=== PATIENT | female | born 1990 | race Caucasian/White ===

== ENCOUNTER 2024-01-20 23:20 | Emergency (ER) | payer OTHER ==
[~2024-01-20] VITALS: Ht 172.7 cm; Wt 124.7 kg
[2024-01-20] MEDS ORDERED: ESCI20TA PO (23:59)
[2024-01-20] MEDS ORDERED: LISI10TA29 PO (23:59)
[2024-01-20] MEDS ORDERED: CARI3CAP PO (23:59)
[2024-01-21] MEDS ORDERED: LORAZEPAM 1 MG TABLET ONE ×2 (00:18→02:04)
[2024-01-21] MEDS ORDERED: ONDANSETRON HCL 4 MG TABLET ONE (00:18)
[2024-01-21] MEDS ORDERED: HYDROMORPHONE 1 MG/1 ML DISP.SYRIN ONE ×2 (00:18→02:04)
[2024-01-21] MEDS: LORAZEPAM 0.5 MG TABLET PO ONE ×2 (00:25→02:09)
[2024-01-21] MEDS: ONDANSETRON ODT 4 MG TAB.RAPDIS SL ONE (00:25)
[2024-01-21] MEDS: HYDROMORPHONE 1 MG/1 ML DISP.SYRIN IM ONE ×2 (00:26→02:10)
[2024-01-21] MEDS ORDERED: HYDR-3980 PO (02:46)
[2024-01-21] MEDS ORDERED: CYCL10TA9 PO (02:46)
[2024-01-21] MEDS ORDERED: ONDA4TAB11 PO (02:46)
[2024-01-21 03:00] VITALS: BP 100/68; TEMP 97.8; O2SAT 97
== END 2024-01-21 03:02 | disposition home or self-care (01) ==
LOC: ER 23:26
DX: M54.50 Low back pain, unspecified (principal); F32.A Depression, unspecified; Z90.49 Acquired absence of other specified parts of digestive tract; Z79.899 Other long term (current) drug therapy; W01.0XXA Fall on same level from slipping, tripping and stumbling without subsequent striking against object, initial encounter; Y93.89 Activity, other specified; Y92.89 Other specified places as the place of occurrence of the external cause; Y99.8 Other external cause status
CPT/HCPCS: 99284; 72110; 96372 ×2; J1171 ×2; A4606; A4663; Q0162

== ENCOUNTER 2024-03-09 23:49 | Emergency (ER) | payer OTHER ==
[~2024-03-09] VITALS: Ht 172.7 cm; Wt 124.7 kg
[~2024-03-09 23:49] MED LIST: CARI3CAP PO; CYCL10TA9 PO; ESCI20TA PO; HYDR-3980 PO; LISI10TA29 PO; ONDA4TAB11 PO
[2024-03-10] MEDS: ALBUTEROL SULFATE 2.5 MG/3 ML NEBU NEB ONE (00:35)
[2024-03-10] MEDS: IPRATROPIUM BROMIDE 0.5 MG/2.5 ML NEBU NEB ONE (00:35)
[2024-03-10] MEDS ORDERED: IPRATROPIUM BROMIDE 0.5 MG/2.5 ML NEBU ONE (00:39)
[2024-03-10] MEDS ORDERED: ALBUTEROL SULFATE 2.5 MG/3 ML NEBU ONE (00:39)
[2024-03-10 00:45] VITALS: O2SAT 96
[2024-03-10 00:47] LABS: BASOPHILS # (AUTO) 0.1 K/UL (0.0-0.2); BASOPHILS % (AUTO) 1.3 % (0.0-2.0); EOSINOPHILS # (AUTO) 0.9 K/uL (0.0-0.7); HEMATOCRIT 39.7 % (31.2-41.9); LYMPHOCYTES # (AUTO) 2.8 K/uL (0.8-4.8); LYMPHOCYTES % (AUTO) 29.5 % (20.5-51.5); MEAN CORPUSCULAR HGB CONC 33 g/dL (32.3-35.6); MEAN CORPUSCULAR VOLUME 82.1 fL (75.5-95.3); MONOCYTES # (AUTO) 0.7 K/uL (0.1-1.30); MONOCYTES % (AUTO) 6.8 % (0.0-11.0); NEUTROPHILS # (AUTO) 5.1 K/uL (1.8-8.9); NEUTROPHILS % (AUTO) 53.4 % (38.5-71.5); PLATELET COUNT (AUTO) 394 K/uL (179-408); RED BLOOD CELL COUNT(AUTO) 4.83 MIL/uL (3.63-4.92); RED CELL DISTRIBUTION WIDTH 15.7 % (12.3-17.7); WHITE BLOOD COUNT (AUTO) 9.6 K/uL (3.8-11.8)
[2024-03-10 00:49] LABS: DIFFERENTIAL COMMENT 1
[2024-03-10 00:54] VITALS: O2SAT 97
[2024-03-10 00:56] LABS: CALCIUM 9.1 mg/dL (8.5-10.1); POTASSIUM 4.2 mmol/L (3.5-5.1)
[2024-03-10] MEDS: predniSONE 10 MG TABLET PO ONE (00:57)
[2024-03-10] MEDS ORDERED: predniSONE 20 MG TABLET ONE (00:57)
[2024-03-10 01:00] VITALS: O2SAT 98
[2024-03-10 01:08] LABS: ALBUMIN 3.5 g/dL (3.4-5.0); BILIRUBIN,DIRECT 0.1 mg/dL (0.0-0.2); BILIRUBIN,TOTAL 0.3 mg/dL (0.2-1.0); TOTAL PROTEIN, SERUM 7.9 g/dL (6.4-8.2)
[2024-03-10] MEDS ORDERED: PRED20TA PO (01:40)
[2024-03-10] MEDS ORDERED: AZIT250T PO (01:40)
[2024-03-10] MEDS ORDERED: ALBU8.5H8 IH (01:40)
[2024-03-10] MEDS: IBUPROFEN 600 MG TABLET PO ONE (01:48)
[2024-03-10] MEDS: AZITHROMYCIN 250 MG TABLET PO ONE (01:48)
[2024-03-10] MEDS ORDERED: IBUPROFEN 600 MG TABLET ONE (01:48)
[2024-03-10] MEDS ORDERED: AZITHROMYCIN 250 MG TABLET ONE (01:48)
[2024-03-10] MEDS ORDERED: HYDROCODONE/APAP 5-325MG TABLET ONE (01:55)
[2024-03-10] MEDS: HYDROCODONE/APAP 5-325MG TABLET PO ONE (01:57)
[2024-03-10 02:45] VITALS: BP 135/78; TEMP 97.9; O2SAT 96
== END 2024-03-10 02:46 | disposition home or self-care (01) ==
LOC: ER 23:59
DX: J18.9 Pneumonia, unspecified organism (principal); F32.A Depression, unspecified; J98.01 Acute bronchospasm; R10.2 Pelvic and perineal pain; Z79.52 Long term (current) use of systemic steroids; Z20.822 Contact with and (suspected) exposure to COVID-19; Z79.899 Other long term (current) drug therapy; Z90.49 Acquired absence of other specified parts of digestive tract
CPT/HCPCS: 36415; 71045; 85025; 94760; A4663; J3590; J7512; Q0144

== ENCOUNTER 2024-03-12 22:59 | Emergency (ER) | payer SELFPAY ==
[~2024-03-12] VITALS: Ht 172.7 cm; Wt 124.7 kg
[~2024-03-12 22:59] MED LIST changes: +ALBU8.5H8 IH; +AZIT250T PO; +PRED20TA PO
[2024-03-12 23:31] LABS: BASOPHILS # (AUTO) 0.1 K/UL (0.0-0.2); BASOPHILS % (AUTO) 0.6 % (0.0-2.0); EOSINOPHILS # (AUTO) 0.1 K/uL (0.0-0.7); EOSINOPHILS % (AUTO) 0.5 % (0.0-7.0); HEMATOCRIT 36.7 % (31.2-41.9); HEMOGLOBIN 12.3 g/dL (10.9-14.3); LYMPHOCYTES # (AUTO) 1.7 K/uL (0.8-4.8); LYMPHOCYTES % (AUTO) 15.2 % (20.5-51.5); MEAN CORPUSCULAR HEMOGLOBIN 27.5 uug (24.7-32.8); MEAN CORPUSCULAR HGB CONC 34 g/dL (32.3-35.6); MONOCYTES # (AUTO) 0.6 K/uL (0.1-1.30); MONOCYTES % (AUTO) 5.4 % (0.0-11.0); NEUTROPHILS # (AUTO) 8.9 K/uL (1.8-8.9); NEUTROPHILS % (AUTO) 78.3 % (38.5-71.5); PLATELET COUNT (AUTO) 405 K/uL (179-408); RED BLOOD CELL COUNT(AUTO) 4.47 MIL/uL (3.63-4.92); WHITE BLOOD COUNT (AUTO) 11.4 K/uL (3.8-11.8)
[2024-03-12 23:35] LABS: DIFFERENTIAL COMMENT 1
[2024-03-12 23:41] LABS: CALCIUM 8.5 mg/dL (8.5-10.1); CARBON DIOXIDE 30 mmol/L (21-32); CHLORIDE 103 mmol/L (98-107); CREATININE 1.1 mg/dL (0.6-1.3); GLUCOSE 108 mg/dL (74-106); SODIUM SERUM 141 mmol/L (136-145); UREA NITROGEN, BLOOD 19 mg/dL (7-18)
[2024-03-12] MEDS ORDERED: ONDANSETRON ODT 4 MG TAB.RAPDIS ONE (23:44)
[2024-03-12] MEDS ORDERED: HYDROCODONE/APAP 5-325MG TABLET ONE (23:44)
[2024-03-12] MEDS: ONDANSETRON ODT 4 MG TAB.RAPDIS SL ONE (23:45)
[2024-03-12] MEDS: HYDROCODONE/APAP 10-325 MG TABLET PO ONE (23:47)
[2024-03-12 23:55] LABS: ALANINE AMINOTRANSFERASE 29 U/L (14-59); ALBUMIN 3.4 g/dL (3.4-5.0); ALKALINE PHOSPHATASE 102 U/L (50-136); ASPARTATE AMINOTRANSFERASE 12 U/L (15-37); BILIRUBIN,DIRECT 0.1 mg/dL (0.0-0.2); BILIRUBIN,TOTAL 0.2 mg/dL (0.2-1.0); NT-PRO BNP 38 pg/mL (0-125); TOTAL PROTEIN, SERUM 7.3 g/dL (6.4-8.2)
[2024-03-13] MEDS ORDERED: HYDROCODONE/APAP 5-325MG TABLET ONE (02:06)
[2024-03-13] MEDS: HYDROCODONE/APAP 10-325 MG TABLET PO ONE (02:07)
[2024-03-13 02:19] VITALS: BP 121/69; TEMP 208.9; O2SAT 97
== END 2024-03-13 02:20 | disposition home or self-care (01) ==
LOC: ER 22:59
DX: R07.89 Other chest pain (principal); R09.1 Pleurisy; M79.7 Fibromyalgia; Z90.49 Acquired absence of other specified parts of digestive tract; Z79.52 Long term (current) use of systemic steroids; Z79.899 Other long term (current) drug therapy
CPT/HCPCS: 36415; 71045; 84484; 85025; A4606; A4663; Q0162

== ENCOUNTER 2024-04-08 00:25 | Emergency (ER) | payer OTHER ==
[~2024-04-08] VITALS: Ht 172.7 cm; Wt 124.7 kg
[2024-04-08] MEDS ORDERED: NAPR500T6 PO (00:44)
[2024-04-08] MEDS ORDERED: KETOROLAC TROMETHAMINE 30 MG INJ ONE (00:46)
[2024-04-08 01:14] LABS: *URINE HCG, QUAL NEGATIVE (NEGATIVE)
[2024-04-08] MEDS: KETOROLAC TROMETHAMINE 30 MG INJ IM ONE (01:20)
[2024-04-08] MEDS ORDERED: HYDROCODONE/APAP 5-325MG TABLET ONE (04:04)
[2024-04-08] MEDS: HYDROCODONE/APAP 5-325MG TABLET PO ONE (04:05)
[2024-04-08 04:18] VITALS: BP 145/88; TEMP 97.9; O2SAT 97
== END 2024-04-08 04:19 | disposition home or self-care (01) ==
LOC: ER 00:25
DX: S93.609A Unspecified sprain of unspecified foot, initial encounter (principal); Z79.52 Long term (current) use of systemic steroids; Z79.899 Other long term (current) drug therapy; Z90.49 Acquired absence of other specified parts of digestive tract; X58.XXXA Exposure to other specified factors, initial encounter; Y93.9 Activity, unspecified; Y92.9 Unspecified place or not applicable; Y99.9 Unspecified external cause status
CPT/HCPCS: 99284; 84703; 73630 ×2; 96372; J1885; A4606; A4663

== ENCOUNTER 2024-05-06 22:53 | Emergency (ER) | payer OTHER ==
[~2024-05-06] VITALS: Ht 172.7 cm; Wt 124.7 kg
[~2024-05-06 22:53] MED LIST changes: +NAPR500T6 PO
[2024-05-06 23:31] VITALS: O2SAT 97
[2024-05-06 23:38] LABS: BASOPHILS # (AUTO) 0.1 K/UL (0.0-0.2); BASOPHILS % (AUTO) 0.9 % (0.0-2.0); EOSINOPHILS # (AUTO) 0.4 K/uL (0.0-0.7); EOSINOPHILS % (AUTO) 4.7 % (0.0-7.0); HEMATOCRIT 36.6 % (31.2-41.9); HEMOGLOBIN 12.2 g/dL (10.9-14.3); LYMPHOCYTES # (AUTO) 2.7 K/uL (0.8-4.8); LYMPHOCYTES % (AUTO) 29.2 % (20.5-51.5); MEAN CORPUSCULAR HEMOGLOBIN 27.2 uug (24.7-32.8); MEAN CORPUSCULAR HGB CONC 33 g/dL (32.3-35.6); MEAN CORPUSCULAR VOLUME 81.5 fL (75.5-95.3); MONOCYTES # (AUTO) 0.6 K/uL (0.1-1.30); MONOCYTES % (AUTO) 6.4 % (0.0-11.0); NEUTROPHILS # (AUTO) 5.5 K/uL (1.8-8.9); NEUTROPHILS % (AUTO) 58.8 % (38.5-71.5); PLATELET COUNT (AUTO) 380 K/uL (179-408); RED CELL DISTRIBUTION WIDTH 15.9 % (12.3-17.7); WHITE BLOOD COUNT (AUTO) 9.3 K/uL (3.8-11.8)
[2024-05-06] MEDS ORDERED: ALBUTEROL SULFATE 2.5 MG/3 ML NEBU ONE (23:38)
[2024-05-06] MEDS ORDERED: IPRATROPIUM BROMIDE 0.5 MG/2.5 ML NEBU ONE (23:38)
[2024-05-06 23:40] LABS: DIFFERENTIAL COMMENT 1
[2024-05-06] MEDS: ALBUTEROL SULFATE 2.5 MG/3 ML NEBU NEB ONE (23:43)
[2024-05-06] MEDS: IPRATROPIUM BROMIDE 0.5 MG/2.5 ML NEBU NEB ONE (23:43)
[2024-05-06 23:44] LABS: *URINE HCG, QUAL NEGATIVE (NEGATIVE)
[2024-05-06 23:46] VITALS: O2SAT 99
[2024-05-06 23:54] LABS: CALCIUM 8.7 mg/dL (8.5-10.1); CARBON DIOXIDE 29 mmol/L (21-32); CHLORIDE 101 mmol/L (98-107); GLUCOSE 90 mg/dL (74-106); POTASSIUM 3.6 mmol/L (3.5-5.1); SODIUM SERUM 139 mmol/L (136-145); UREA NITROGEN, BLOOD 12 mg/dL (7-18)
[2024-05-07 00:06] LABS: ALANINE AMINOTRANSFERASE 34 U/L (14-59); ALBUMIN 3.5 g/dL (3.4-5.0); ALKALINE PHOSPHATASE 98 U/L (50-136); ASPARTATE AMINOTRANSFERASE 20 U/L (15-37); BILIRUBIN,DIRECT 0.1 mg/dL (0.0-0.2); BILIRUBIN,TOTAL 0.3 mg/dL (0.2-1.0); NT-PRO BNP 19 pg/mL (0-125); TOTAL PROTEIN, SERUM 7.1 g/dL (6.4-8.2)
[2024-05-07] MEDS ORDERED: METH4TAB21 PO (00:26)
[2024-05-07] MEDS ORDERED: ALBU8.5H8 INH (00:26)
[2024-05-07] MEDS: predniSONE 20 MG TABLET PO ONE (00:40)
[2024-05-07 00:41] VITALS: BP 108/73; O2SAT 99
== END 2024-05-07 00:40 | disposition home or self-care (01) ==
LOC: ER 22:53
DX: J98.01 Acute bronchospasm (principal); J44.89 Other specified chronic obstructive pulmonary disease; Z79.52 Long term (current) use of systemic steroids; Z79.899 Other long term (current) drug therapy; Z87.891 Personal history of nicotine dependence; Z90.49 Acquired absence of other specified parts of digestive tract
CPT/HCPCS: 99285; 71045; 80076; 80048; 84703; 83880; 85025; 85379; 84484; 36415; 94640; 93005; J7512; A4606; A4663; J3590

== ENCOUNTER 2024-06-22 01:16 | Emergency (ER) | payer OTHER ==
[~2024-06-22] VITALS: Ht 172.7 cm; Wt 124.7 kg
[~2024-06-22 01:16] MED LIST changes: +ALBU8.5H8 INH; +METH4TAB21 PO
[2024-06-22 02:05] LABS: BASOPHILS # (AUTO) 0.1 K/UL (0.0-0.2); BASOPHILS % (AUTO) 0.8 % (0.0-2.0); EOSINOPHILS # (AUTO) 0.4 K/uL (0.0-0.7); EOSINOPHILS % (AUTO) 3.6 % (0.0-7.0); HEMATOCRIT 35.9 % (31.2-41.9); HEMOGLOBIN 12.2 g/dL (10.9-14.3); LYMPHOCYTES # (AUTO) 2.3 K/uL (0.8-4.8); MEAN CORPUSCULAR HEMOGLOBIN 27.1 uug (24.7-32.8); MEAN CORPUSCULAR HGB CONC 34 g/dL (32.3-35.6); MEAN CORPUSCULAR VOLUME 79.9 fL (75.5-95.3); MONOCYTES # (AUTO) 0.4 K/uL (0.1-1.30); MONOCYTES % (AUTO) 4.2 % (0.0-11.0); NEUTROPHILS # (AUTO) 6.9 K/uL (1.8-8.9); NEUTROPHILS % (AUTO) 68.4 % (38.5-71.5); PLATELET COUNT (AUTO) 383 K/uL (179-408); RED CELL DISTRIBUTION WIDTH 15.8 % (12.3-17.7); WHITE BLOOD COUNT (AUTO) 10.1 K/uL (3.8-11.8)
[2024-06-22 02:06] LABS: DIFFERENTIAL COMMENT 1
[2024-06-22 02:07] LABS: ERYTHROCYTE SEDIMENTATION RATE 24 MM/HR (0-20)
[2024-06-22 02:09] LABS: *BILIRUBIN,URIN NEGATIVE (NEGATIVE); *BLOOD, URINE NEGATIVE (NEGATIVE); *CLARITY,URINE CLEAR (CLEAR); *COLOR,URINE YELLOW (YELLOW); *KETONES,URINE NEGATIVE (NEGATIVE); *PROTEIN,URINE NEGATIVE (NEGATIVE); *UROBILINOGEN,URINE 0.2 E.U./dl (NORMAL); LEUKOCYTE ESTERASE ,URINE NEGATIVE (NEGATIVE); NITRITE, URINE NEGATIVE (NEGATIVE); PH,URINE 5.5 (5.0-8.0); UGLUCOSE NEGATIVE (NEGATIVE)
[2024-06-22 02:10] LABS: CALCIUM 8.6 mg/dL (8.5-10.1); CREATININE 1.1 mg/dL (0.6-1.3); POTASSIUM 3.8 mmol/L (3.5-5.1)
[2024-06-22 02:15] LABS: *URINE HCG, QUAL NEGATIVE (NEGATIVE)
[2024-06-22 02:16] LABS: ALBUMIN 3.3 g/dL (3.4-5.0); BILIRUBIN,TOTAL 0.2 mg/dL (0.2-1.0); TOTAL PROTEIN, SERUM 7.5 g/dL (6.4-8.2)
[2024-06-22 02:17] LABS: *AMPHETAMINE, URINE POSITIVE (NEGATIVE); *BARBITURATE, URINE NEGATIVE (NEGATIVE); *BENZODIAZEPINE, URINE NEGATIVE (NEGATIVE); *CANNABINOID, URINE POSITIVE (NEGATIVE); *COCCAINE, URINE NEGATIVE (NEGATIVE); *OPIATE, URINE NEGATIVE (NEGATIVE); *PHENCYCLIDINE SCREEN,URINE NEGATIVE (NEGATIVE); FENTANYL, URINE NEGATIVE (NEGATIVE)
[2024-06-22] MEDS ORDERED: KETOROLAC TROMETHAMINE 30 MG INJ ONE (02:20)
[2024-06-22] MEDS: KETOROLAC TROMETHAMINE 30 MG INJ IM ONE (02:26)
[2024-06-22] MEDS ORDERED: GABA-532 PO (03:40)
[2024-06-22] MEDS ORDERED: ONDANSETRON ODT 4 MG TAB.RAPDIS ONE (03:50)
[2024-06-22] MEDS ORDERED: HYDROMORPHONE 1 MG/1 ML DISP.SYRIN ONE (03:50)
[2024-06-22] MEDS: ONDANSETRON ODT 4 MG TAB.RAPDIS SL ONE (03:57)
[2024-06-22] MEDS: HYDROMORPHONE 1 MG/1 ML DISP.SYRIN IM ONE (03:57)
[2024-06-22 04:53] VITALS: BP 160/99; O2SAT 98
== END 2024-06-22 04:54 | disposition home or self-care (01) ==
LOC: ER 01:22
DX: M54.50 Low back pain, unspecified (principal); M54.6 Pain in thoracic spine; Z79.52 Long term (current) use of systemic steroids; Z79.899 Other long term (current) drug therapy; Z90.49 Acquired absence of other specified parts of digestive tract; Z87.09 Personal history of other diseases of the respiratory system
CPT/HCPCS: 99285; 72128; 80053; 84703; 85025; 85651; 36415; 72131; 96372 ×2; 80307; 81003; J1885; J1171; A4606; A4663; Q0162

== ENCOUNTER 2024-11-14 20:51 | Emergency (ER) | payer OTHER ==
[~2024-11-14] VITALS: Ht 172.7 cm; Wt 122.5 kg
[2024-11-14 20:51] VITALS: BP 142/79
[~2024-11-14 20:51] MED LIST changes: +GABA-532 PO
[2024-11-14 21:00] VITALS: O2SAT 98
[2024-11-14 21:15] VITALS: O2SAT 99
[2024-11-14] MEDS: ALBUTEROL SULFATE 2.5 MG/3 ML NEBU NEB ONE (21:29)
[2024-11-14] MEDS: IPRATROPIUM BROMIDE 0.5 MG/2.5 ML NEBU NEB ONE (21:29)
[2024-11-14 22:15] LABS: PLATELET COUNT (AUTO) 399 K/uL (179-408); RED BLOOD CELL COUNT(AUTO) 4.63 MIL/uL (3.63-4.92); RED CELL DISTRIBUTION WIDTH 16.4 % (12.3-17.7); WHITE BLOOD COUNT (AUTO) 9.3 K/uL (3.8-11.8)
[2024-11-14 22:53] LABS: CREATININE 0.7 mg/dL (0.6-1.3); SODIUM SERUM 142 mmol/L (136-145); UREA NITROGEN, BLOOD 21 mg/dL (7-18)
[2024-11-14 22:54] LABS: LACTIC ACID 2.9 mmol/L (0.4-2.0)
[2024-11-14 22:59] LABS: ASPARTATE AMINOTRANSFERASE 25 U/L (15-37); TOTAL PROTEIN, SERUM 8.2 g/dL (6.4-8.2)
[2024-11-14] MEDS ORDERED: PRED20TA PO (23:41)
[2024-11-14] MEDS ORDERED: ALBU18HF2 INH (23:41)
[2024-11-15 00:02] VITALS: BP 140/70; TEMP 98; O2SAT 99
== END 2024-11-15 00:03 | disposition home or self-care (01) ==
LOC: ER 20:51
DX: R06.00 Dyspnea, unspecified (principal); J20.9 Acute bronchitis, unspecified; J18.9 Pneumonia, unspecified organism; Z79.52 Long term (current) use of systemic steroids; Z79.899 Other long term (current) drug therapy; Z87.01 Personal history of pneumonia (recurrent); Z90.49 Acquired absence of other specified parts of digestive tract
CPT/HCPCS: 99285; 96374; 71045; 80076; 80048; 83880; 85025; 85379; 85730; 84484; 36415; 94640; 93005; 83605; J2919; A4606; A4663; J3590

== ENCOUNTER 2024-12-14 23:23 | Emergency (ER) | payer OTHER ==
[~2024-12-14] VITALS: Ht 170.2 cm; Wt 122.5 kg
[~2024-12-14 23:23] MED LIST changes: +ALBU18HF2 INH
[2024-12-14 23:25] VITALS: BP 138/95
[2024-12-14] MEDS ORDERED: DULO40CA2 PO (23:40)
[2024-12-14] MEDS ORDERED: PROP20TA7 PO (23:40)
[2024-12-14] MEDS ORDERED: CLON0.5T PO (23:40)
[2024-12-14] MEDS: ALBUTEROL SULFATE 2.5 MG/3 ML NEBU NEB ONE (23:54)
[2024-12-14] MEDS: IPRATROPIUM BROMIDE 0.5 MG/2.5 ML NEBU NEB ONE (23:54)
[2024-12-14] MEDS ORDERED: IPRATROPIUM BROMIDE 0.5 MG/2.5 ML NEBU ONE (23:57)
[2024-12-14] MEDS ORDERED: ALBUTEROL SULFATE 2.5 MG/3 ML NEBU ONE (23:57)
[2024-12-15 00:01] LABS: PLATELET COUNT (AUTO) 430 K/uL (179-408); RED BLOOD CELL COUNT(AUTO) 4.56 MIL/uL (3.63-4.92); RED CELL DISTRIBUTION WIDTH 16.4 % (12.3-17.7); WHITE BLOOD COUNT (AUTO) 9.3 K/uL (3.8-11.8)
[2024-12-15 00:05] VITALS: O2SAT 99
[2024-12-15 00:08] LABS: CREATININE 0.9 mg/dL (0.6-1.3); SODIUM SERUM 138.0 mmol/L (136-145); UREA NITROGEN, BLOOD 14.0 mg/dL (7-18)
[2024-12-15 00:14] LABS: ASPARTATE AMINOTRANSFERASE 18.0 U/L (15-37); TOTAL PROTEIN, SERUM 7.2 g/dL (6.4-8.2)
[2024-12-15 00:20] VITALS: O2SAT 99
[2024-12-15 00:32] LABS: *BILIRUBIN,URIN NEGATIVE (NEGATIVE); *COLOR,URINE YELLOW (YELLOW); *KETONES,URINE NEGATIVE (NEGATIVE); *PROTEIN,URINE NEGATIVE (NEGATIVE); *UROBILINOGEN,URINE 0.2 E.U./dl (NORMAL); LEUKOCYTE ESTERASE ,URINE NEGATIVE (NEGATIVE); NITRITE, URINE NEGATIVE (NEGATIVE); UGLUCOSE NEGATIVE (NEGATIVE)
[2024-12-15 00:34] LABS: *BLOOD, URINE TRACE (NEGATIVE); *CLARITY,URINE HAZY (CLEAR)
[2024-12-15 01:01] LABS: SQUAMOUS EPITHELIAL CELL,UR MANY /HPF (NONE SEEN)
[2024-12-15 01:12] VITALS: BP 133/90; O2SAT 99
== END 2024-12-15 01:10 | disposition home or self-care (01) ==
LOC: ER 23:37
DX: J20.9 Acute bronchitis, unspecified (principal); J01.90 Acute sinusitis, unspecified; J42 Unspecified chronic bronchitis; F41.9 Anxiety disorder, unspecified; Z79.52 Long term (current) use of systemic steroids; Z79.899 Other long term (current) drug therapy; Z87.01 Personal history of pneumonia (recurrent); Z90.49 Acquired absence of other specified parts of digestive tract
CPT/HCPCS: 99284; 71045; 80053; 83880; 85025; 85379; 85610; 36415; 94640; 81001; J7512; A4606; A4663; J3590